=== PATIENT | male | born 1975 | race Hispanic/Latino ===

== ENCOUNTER 2022-01-28 08:34 | Emergency (ER) | payer BC ==
--- OUTSIDE RECORDS SUMMARY | 2022-01-28 08:36 | XMS REPORT | Continuity of Care Document ---
:1975 Author Organization [facility] t Address [address] [place] [address] Care Team Providers Name Role Phone Prince Yosef Barnard Attending Clinician Unavailable Problems This patient has no known problems. Allergies, Adverse Reactions, Alerts This patient has no known allergies or adverse reactions. Medications This patient has no known medications. Procedures This patient has no known procedures. Encounters Start End Encounter Admission Attending Care Care Encounter Source Date/Time Date/Time Type Type Clinicians Facility Department ID 2022-01-25 Outpatient ROSA Morrison [facility] [id number] Common 15:09:01 [facility] [id number] [facility] 2022-01-25 2022-01-25 ambulatory [facility] [id number] Common 00:00:00 00:00:00 [facility] Results This patient has no known results.
--- NOTE | 2022-01-28 10:13 | ER ---
Nurse's Notes [facility] Name: Manny Jameson Age: 46 yrs Sex: Male : 1975 Arrival Date: 01/28/2022 Time: 08:41 Bed 7 Private MD: Diagnosis: SARS-associated coronavirus as the cause of diseases classified elsewhere Presentation: 01/28 08:46 Chief complaint: Patient states: My throat has been hurting bad since . 7 Coronavirus screen: Client presents with at least one sign or symptom that may indicate coronavirus-19. Standard/surgical mask placed on the client. Ebola Screen: No symptoms or risks identified at this time. Initial Sepsis Screen: Does the patient meet any 2 criteria? No. Patient's initial sepsis screen is negative. Does the patient have a suspected source of infection? No. Patient's initial sepsis screen is negative. Risk Assessment: Do you want to hurt yourself or someone else? Patient reports no desire to harm self or others. Onset of symptoms was January 27, 2022. Care prior to arrival: None. 08:46 Method Of Arrival: Ambulatory [facility] 08:46 Acuity: LARS 4 bm7 Triage Assessment: 08:48 General: Appears in no apparent distress. comfortable, obese, Behavior is calm, bm7 cooperative, appropriate for age. Pain: Complains of pain in throat. EENT: Oral mucosa is moist. Throat is reddened Reports difficulty swallowing. Neuro: No deficits noted. Cardiovascular: No deficits noted. Respiratory: Reports cough that is non-productive. GI: No deficits noted. No signs and/or symptoms were reported involving the gastrointestinal system. : No deficits noted. No signs and/or symptoms were reported regarding the genitourinary system. Derm: No deficits noted. No signs and/or symptoms reported regarding the dermatologic system. Skin is intact, is healthy with good turgor. Musculoskeletal: No deficits noted. No signs and/or symptoms reported regarding the musculoskeletal system. Historical: - Allergies: 08:48 No Known Allergies; bm7 - Home Meds: 08:48 Unable to obtain [Active]; bm7 - PMHx: 08:48 Hypertensive disorder; Hypercholesterolemia; bm7 - PSHx: 08:48 None; bm7 - Immunization history:: Adult Immunizations up to date, Client reports receiving the 2nd dose of the Covid vaccine, Client reports receiving the 1st dose of the Covid vaccine. - Social history:: Smoking status: Patient/guardian denies using tobacco products. Screenin:12 Abuse screen: Denies threats or abuse. Nutritional screening: No deficits noted. bm7 Tuberculosis screening: No symptoms or risk factors identified. Fall Risk None identified. Assessment: 09:12 Reassessment: No changes from previously documented assessment. Patient and/or family bm7 updated on plan of care and expected duration. Pain level reassessed. Patient is alert, oriented x 3, equal unlabored respirations, skin warm/dry/pink. 10:00 Reassessment: Patient and/or family updated on plan of care and expected duration. Pain bm7 level reassessed. Vital Signs: 08:46 BP 141 / 92; Pulse 92; Resp 18; Temp 97.1(TE); Pulse Ox 97% on R/A; Weight 104.33 kg bm7 (R); Height 5 ft. 2 in. (157.48 cm); Pain 3/10; 10:08 BP 140 / 81; Pulse 86; Resp 16; Pulse Ox 99% on R/A; bm7 08:46 Body Mass Index 42.07 (104.33 kg, 157.48 cm) bm7 ED Course: 08:41 Patient arrived in ED. em1 08:46 Elizabeth Segura, RN is Primary Nurse. bm7 08:48 Triage completed. bm7 08:48 [facility] jl9 08:48 Kelvin Ramírez MD is Attending Physician. jl9 08:48 Arm band placed on right wrist. bm7 09:12 Patient has correct armband on for positive identification. Call light in reach. Side bm7 rails up X 1. Client placed on continuous cardiac and pulse oximetry monitoring. NIBP monitoring applied. Warm blanket given. 09:14 No apparent distress. Resting quietly. Awaiting lab results. bm7 09:14 No provider procedures requiring assistance completed. COVID swab sent to lab. Strep bm7 swab sent to lab. 10:20 Patient did not have IV access during this emergency room visit. bm7 Administered Medications: No medications were administered Medication: 09:12 VIS not applicable for this client. bm7 Outcome: 10:12 Discharge ordered by . jl9 10:20 Discharged to home ambulatory. bm7 10:20 Condition: good 10:20 Discharge instructions given to patient, Instructed on discharge instructions, follow up and referral plans. Demonstrated understanding of instructions, follow-up care. 10:20 Patient left the ED. bm7 Signatures: David Guerra em1 Elizabeth Segura, RN RN bm7 Jh Beth jl9
--- NOTE | 2022-01-28 10:13 | EDPHYS ---
Physician Documentation [facility] Name: Manny Jameson Age: 46 yrs Sex: Male : 1975 Arrival Date: 01/28/2022 Time: 08:41 Bed 7 Private MD: ED Physician Kelvin Ramírez HPI: 01/28 09:35 This 46 yrs old Male presents to ER via Ambulatory with complaints of Sore jl9 throat, fatigue. . 09:35 Onset: The symptoms/episode began/occurred 3 day(s) ago. Severity of symptoms: Pain is jl9 currently a / 10. Historical: - Allergies: 08:48 No Known Allergies; bm7 - Home Meds: 08:48 Unable to obtain [Active]; bm7 - PMHx: 08:48 Hypertensive disorder; Hypercholesterolemia; bm7 - PSHx: 08:48 None; bm7 - Immunization history:: Adult Immunizations up to date, Client reports receiving the 2nd dose of the Covid vaccine, Client reports receiving the 1st dose of the Covid vaccine. - Social history:: Smoking status: Patient/guardian denies using tobacco products. ROS: 09:36 Constitutional: Negative for fever, chills, and weight loss. jl9 09:36 Eyes: Negative for injury, pain, redness, and discharge. 09:36 Neck: Negative for injury, pain, and swelling, Cardiovascular: Negative for chest pain, palpitations, and edema, Respiratory: Negative for shortness of breath, cough, wheezing, and pleuritic chest pain, Abdomen/GI: Negative for abdominal pain, nausea, vomiting, diarrhea, and constipation, Back: Negative for injury and pain, : Negative for injury, bleeding, discharge, and swelling, MS/Extremity: Negative for injury and deformity, Skin: Negative for injury, rash, and discoloration, Neuro: Negative for headache, weakness, numbness, tingling, and seizure, Psych: Negative for depression, anxiety, suicide ideation, homicidal ideation, and hallucinations, Allergy/Immunology: Negative for hives, rash, and allergies, Endocrine: Negative for neck swelling, polydipsia, polyuria, polyphagia, and marked weight changes, Hematologic/Lymphatic: Negative for swollen nodes, abnormal bleeding, and unusual bruising. 09:36 ENT: Positive for sore throat. Exam: 09:36 Constitutional: This is a well developed, well nourished patient who is awake, alert, jl9 and in no acute distress. Head/Face: Normocephalic, atraumatic. Eyes: Pupils equal round and reactive to light, extra-ocular motions intact. Lids and lashes normal. Conjunctiva and sclera are non-icteric and not injected. Cornea within normal limits. Periorbital areas with no swelling, redness, or edema. 09:36 Neck: Trachea midline, no thyromegaly or masses palpated, and no cervical lymphadenopathy. Supple, full range of motion without nuchal rigidity, or vertebral point tenderness. No Meningismus. Chest/axilla: Normal chest wall appearance and motion. Nontender with no deformity. No lesions are appreciated. Cardiovascular: Regular rate and rhythm with a normal S1 and S2. No gallops, murmurs, or rubs. Normal PMI, no JVD. No pulse deficits. Respiratory: Lungs have equal breath sounds bilaterally, clear to auscultation and percussion. No rales, rhonchi or wheezes noted. No increased work of breathing, no retractions or nasal flaring. Abdomen/GI: Soft, non-tender, with normal bowel sounds. No distension or tympany. No guarding or rebound. No evidence of tenderness throughout. Back: No spinal tenderness. No costovertebral tenderness. Full range of motion. Skin: Warm, dry with normal turgor. Normal color with no rashes, no lesions, and no evidence of cellulitis. MS/ Extremity: Pulses equal, no cyanosis. Neurovascular intact. Full, normal range of motion. Neuro: Awake and alert, GCS 15, oriented to person, place, time, and situation. Cranial nerves II-XII grossly intact. Motor strength 5/5 in all extremities. Sensory grossly intact. Cerebellar exam normal. Normal gait. Psych: Awake, alert, with orientation to person, place and time. Behavior, mood, and affect are within normal limits. 09:36 ENT: Posterior pharynx: swelling, that is moderate, erythema, that is moderate. Vital Signs: 08:46 BP 141 / 92; Pulse 92; Resp 18; Temp 97.1(TE); Pulse Ox 97% on R/A; Weight 104.33 kg bm7 (R); Height 5 ft. 2 in. (157.48 cm); Pain 3/10; 10:08 BP 140 / 81; Pulse 86; Resp 16; Pulse Ox 99% on R/A; bm7 08:46 Body Mass Index 42.07 (104.33 kg, 157.48 cm) bm7 MDM: 08:48 Patient medically screened. jl9 09:37 Data reviewed: vital signs, nurses notes. jl9 10:12 Counseling: I had a detailed discussion with the patient and/or guardian regarding: the jl9 historical points, exam findings, and any diagnostic results supporting the discharge/admit diagnosis, the need for outpatient follow up, to return to the emergency department if symptoms worsen or persist or if there are any questions or concerns that arise at home. 01/28 08:53 Order name: Group A Streptococcus Rapid Sc; Complete Time: 10:12 EDMS 01/28 08:54 Order name: SARS-COV-2 RT PCR (Document "Date of Onset" if Symptomatic); Complete Time: jl9 10:12 01/28 09:25 Order name: Throat Culture EDMS Administered Medications: No medications were administered Disposition Summary: 01/28/22 10:12 Discharge Ordered Location: Home jl9 Condition: Stable jl9 Diagnosis - SARS-associated coronavirus as the cause of diseases classified elsewhere jl9 Followup: jl9 - With: Private Physician - When: 1 - 2 days - Reason: Recheck today's complaints, Continuance of care, Re-evaluation by your physician Discharge Instructions: - Discharge Summary Sheet jl9 - COVID-19 jl9 Forms: - Medication Reconciliation Form jl9 - Thank You Letter jl9 - Antibiotic Education jl9 - Prescription Opioid Use jl9 Signatures: Dispatcher [employer] EDElizabeth Hernandez, RN RN bm7 Jh Beth jl9
[2022-01-28 10:34] VITALS: TEMP 97.1
[2022-01-28 10:36] VITALS: BP 140/81; O2SAT 99
== END 2022-01-28 10:20 | disposition home or self-care (01) ==
LOC: ER 08:34
DX: U07.1 COVID-19 (principal); I10 Essential (primary) hypertension
CPT/HCPCS: 87070; 87081; U0003; 99283